=== PATIENT | male | born 1965 | race Hispanic/Latino ===

== ENCOUNTER 2019-05-28 09:50 | Inpatient (IN) | payer OTHER ==
[2019-05-28 14:27] LABS: BUN/Creatinine Ratio 12; Blood Urea Nitrogen 7 mg/dL (9-20); Calcium 8.6 mg/dL (8.4-10.2); Hemolysis Index 16
[2019-05-28 14:28] LABS: Basophils # (Auto) 0.1 K/mm3 (0.0-0.1); Basophils % (Auto) 0.6 % (0.0-1.8); Eosinophils # (Auto) 0.2 K/mm3 (0.0-0.4); Eosinophils % (Auto) 2.7 % (0.0-4.3); Hematocrit 41.6 % (35.5-45.6); Hemoglobin 13.9 gm/dl (11.8-15.2); Lymphocytes # (Auto) 1.4 K/mm3 (1.2-5.4); Lymphocytes % (Auto) 16.1 % (13.4-35.0); Mean Corpuscular HGB Conc 33 % (32-34); Mean Corpuscular Volume 93 fl (84-94); Monocytes # (Auto) 1.1 K/mm3 (0.0-0.8); Monocytes % (Auto) 11.9 % (0.0-7.3); Platelet Count 137 K/mm3 (140-440); Red Blood Count 4.46 M/mm3 (3.65-5.03); Red Cell Distribution Width 13.8 % (13.2-15.2)
--- NOTE | 2019-05-28 14:43 | XRay Report ---
CHEST 1 VIEW INDICATION: Chest Pain. COMPARISON: None FINDINGS: Support devices: None. Heart: Within normal limits. Lungs/Pleura: No acute air space or interstitial disease. Additional findings: There is a posterior right sixth rib fracture which is comminuted and slightly d isplaced. No pneumothorax. IMPRESSION: 1. Right rib fracture as above. 2. Clear lungs. No pneumothorax. Signer Name: Taras Martino MD Signed: 05/28/2019 2:38 PM Workstation Name: [id number]
[2019-05-28] MEDS ORDERED: HYDROcodone/ACETAMINOPHEN 7.5-325MG TAB PO ONE (15:45)
--- NOTE | 2019-05-28 15:59 | Emergency Department Report ---
<BEATRICE CARLSON - Last Filed: 05/28/19 15:54> ED General Adult HPI - General Chief complaint: Chest Pain Stated complaint: CHEST PAIN Time Seen by Provider: 05/28/19 15:28 Source: EMS Mode of arrival: Ambulatory Limitations: No Limitations - History of Present Illness Initial comments: 54-year-old male presents to the emergency room for chest pain in the left upper chest 2 weeks. Patient denies any trauma no injuries. Patient denies any cough besides his smoker's cough. Patient reports a past medical history of hypertension and diabetes but does not take any medication secondary to no funds or insurance. He does smoke for over 30 years. Onset/Timin -: week(s) Location: chest (sternal notch), abdomen (epigastric) Radiation: non-radiation Severity scale (0 -10): 5 Quality: aching Consistency: intermittent Improves with: none Worsens with: none Associated Symptoms: denies other symptoms - Related Data Home Medications Medication Instructions Recorded Confirmed Last Taken No Known Home Medications [No 05/28/19 05/28/19 Unknown Reported Home Medications] Allergies Allergy/AdvReac Type Severity Reaction Status Date / Time No Known Allergies Allergy Unverified 05/28/19 13:41 ED Review of Systems Comment: All other systems reviewed and negative Constitutional: denies: chills, fever Eyes: denies: eye pain, eye discharge, vision change ED Past Medical Hx - Past Medical History Previous Medical History?: Yes Hx Diabetes: Yes - Surgical History Past Surgical History?: No - Social History Smoking Status: Never Smoker Substance Use Type: None - Medications Home Medications: Home Medications Medication Instructions Recorded Confirmed Last Taken Type No Known Home Medications [No 05/28/19 05/28/19 Unknown History Reported Home Medications] ED Physical Exam - General Limitations: No Limitations General appearance: alert, in no apparent distress - Head Head exam: Present: atraumatic, normocephalic - Eye Eye exam: Present: normal appearance - ENT ENT exam: Present: mucous membranes moist - Neck Neck exam: Present: normal inspection, full ROM. Absent: tenderness, l ymphadenopathy - Respiratory Respiratory exam: Present: normal lung sounds bilaterally, chest wall tenderness. Absent: respiratory distress, wheezes - Cardiovascular Cardiovascular Exam: Present: tachycardia ED Medical Decision Making - Lab Data Result diagrams: 05/28/19 13:50 05/28/19 13:50 - Radiology Data Radiology results: report reviewed Patient: BETTY JUAN MR#: [id number] 33 : 1965 Acct:[id number] Age/Sex: 54 / M ADM Date: 05/28/19 Loc: ED Attending Dr: Ordering Physician: ED MD ANASTACIA Date of Service: 05/28/19 Procedure(s): XR chest 1V ap Accession Number(s): [id number] cc: ED DOCMD Fluoro Time In Minutes: CHEST 1 VIEW INDICATION: Chest Pain. COMPARISON: None FINDINGS: Support devices: None. Heart: Within normal limits. Lungs/Pleura: No acute air space or interstitial disease. Additional findings: There is a posterior right sixth rib fracture which is comminuted and slightly displaced. No pneumothorax. IMPRESSION: 1. Right rib fracture as above. 2. Clear lungs. No pneumothorax. Signer Name: Taras Martino MD Signed: 05/28/2019 2:38 PM Workstation Name: [id number] Transcribed By: JW Dictated By: Taras Martino MD Electronically Authenticated By: Taras Martino MD Signed Date/Time: 05/28/191437 DD/ 37 TD/TT: - Medical Decision Making 54-year-old male presents to the emergency room for chest pain in the left upper chest 2 weeks. Patient denies any trauma no injuries. Patient denies any cough besides his smoker's cough. Patient reports a past medical history of hypertension and diabetes but does not take any medication secondary to no funds or insurance. He does smoke for over 30 years. Chest x-ray shows fracture to the right sixth rib. Lipase labs are within normal limits. He was given [place] for pain management. Patient was given clonidine 0.1 mg by mouth 4 blood pressure. Blood pressure still elevated 207/120. Patient is still asymptomatic. Discussed case with Dr. chauhan. She recommends patient to get a CTA of chest abdomen and pelvis as well as labetalol 10mg IV than recheck BP in 30mins. ED Disposition Clinical Impression: Rib fracture, Epigastric pain, Uncontrolled hypertension, Noncompliance with medication regimen, Chest pain Disposition: OP ADMIT IP TO THIS HOSP Is pt being admited?: No Does the pt Need Aspirin: No Condition: Fair <GUY ROSS - Last Filed: 05/28/19 18:45> ED Course - Reevaluation(s) Reevaluation #2: 05/28/19 18:49 Patient was signed out to me for pending CTA of chest and abdominal with trop levels and repeat vitals. CTA and labs are still pending. Vital signs are being taken by RN currently. Patient signed out to Dr. Hernández for follow-up results/vitals and discharge instructions by Dr. Chauhan. ED Medical Decision Making - Lab Data Result diagrams: 05/28/19 13:50 05/28/19 13:50 <JUWAN HERNÁNDEZ - Last Filed: 05/28/19 19:16> ED Course - Reevaluation(s) Reevaluation #3: 05/28/19 19:16 Pt seen and evaluated by myself. Pt has never had a stress test or cardiac cath p/w exertional EARLENE pain. Will admit to the hospital for further evaluation ED Medical Decision Making - Lab Data Result diagrams: 05/28/19 13:50 05/28/19 13:50 Laboratory Tests 05/28/19 05/28/19 05/28/19 13:50 13:50 13:50 WBC 8.9 RBC 4.46 Hgb 13.9 Hct 41.6 MCV 93 MCH 31 MCHC 33 RDW 13.8 Plt Count 137 L Lymph % (Auto) 16.1 Sac % (Auto) 11.9 H Eos % (Auto) 2.7 Baso % (Auto) 0.6 Lymph # 1.4 Sac # 1.1 H Eos # 0.2 Baso # 0.1 Seg Neutrophils % 68.7 Seg Neutrophils # 6.1 Sodium 137 Potassium 3.7 Chloride 100.0 Carbon Dioxide 28 Anion Gap 13 BUN 7 L Creatinine 0.6 L Estimated GFR > 60 BUN/Creatinine Ratio 12 Glucose 95 Calcium 8.6 Troponin T < 0.010 Lipase 20 - EKG Data -: EKG Interpreted by Me EKG shows normal: sinus rhythm Rate: normal - Radiology Data Radiology results: report reviewed (CT chest, abd/pel), image reviewed (CT Chest/abd/pel) [facility] [address] [place] [address] Cat Scan Report Signed Patient: BETTY JUAN MR#: [id number] 33 : 1965 Acct:[id number] Age/Sex: 54 / M ADM Date: 05/28/19 Loc: ED Attending Dr: Ordering Physician: AFSHAN JOSEHP Date of Service: 05/28/19 Procedure(s): CT angio chest Accession Number(s): [id number] cc: AFSHAN JOSEPH CTA chest, abdomen, and pelvis with contrast INDICATION : epigastric abdominal and chest pain. TECHNIQUE: Axial imaging performed through the chest, abdomen, and pelvis, with contrast bolus timing set to maximize opacification of the pulmonary arteries and aorta. 3- plane MIP reformatted images were obtained. All CT scans at this location are performed using CT dose reduction for ALARA by means of automated exposure control. 100 mL of intravenous contrast administered. COMPARISON: None. FINDINGS: Chest: Contrast bolus timing is adequate with no pulmonary arterial filling defect present to suggest PTE. The thoracic aorta shows no acute abnormality such as a dissection. There is no evidence of an aneurysm. Heart size is normal. There is mild emphysema with clear lungs. There are degenerative changes within the spine with no acute osseous abnormality identified. Abdomen/pelvis: There is moderate atherosclerotic disease within the abdominal aorta and branch vessels with no dissection or aneurysm identified. There is at least 50-75% stenosis at the origin of the left renal artery. For arterial phase technique, the liver, gallbladder, spleen, pancreas, adrenals, kidneys, and proximal GI tract appear unremarkable. No pathologic peritoneal or retroperitoneal adenopathy. The prostate is slightly enlarged but otherwise unremarkable. The urinary bladder is normal. No pelvic free fluid. There are occasional colonic diverticula with no acute inflammatory change identified. There are degenerative changes within the spine and pelvis with no acute osseous abnormality identified. IMPRESSION: 1. Negative for PTE. No acute vascular abnormality. 2. Incidental findings as above. Signer Name: Taras Martino MD Signed: 05/28/2019 6:54 PM Workstation Name: [id number] Transcribed By: JUSTIN Dictated By: Taras Martino MD Electronically Authenticated By: Taras Martino MD Signed Date/Time: 05/28/191853 DD/ 49 TD/TT: ED Disposition Is pt being admited?: Yes Does the pt Need Aspirin: No Time of Disposition: 19:17 (Hospitalist paged (Dr Garrett)) <KATIE CHAUHAN - Last Filed: 06/01/19 09:44> ED General Adult HPI - History of Present Illness Initial comments: I also spoke to the patient. Patient has pain under the xiphoid process at the epigastric area for the past 2 weeks. Pain is not min the left upper chest. Pain feels like he swallowed a rock. Pain is constant and worse with deep palpation. He denies shortness of breath, nausea, vomiting, or diaphoresis. Pain is not changed with food and liquid intake. He has chronic elevated blood pressure but does not take any medications. ED Review of Systems ROS: Stated complaint: CHEST PAIN Other details as noted in HPI ED Course Vital Signs 05/28/19 05/28/19 05/28/19 09:56 16:45 17:01 Temperature 98.5 F 98.2 F Pulse Rate 105 H 79 85 Respiratory 26 H Rate Blood Pressure 186/110 207/115 Blood Pressure 207/114 [Left] O2 Sat by Pulse 97 Oximetry 05/28/19 05/28/19 05/28/19 17:48 18:19 18:23 Temperature Pulse Rate 82 82 Respiratory 16 Rate Blood Pressure 209/120 Blood Pressure 209/120 [Left] O2 Sat by Pulse Oximetry 05/28/19 05/28/19 05/28/19 18:49 19:45 19:51 Temperature Pulse Rate 75 72 73 Respiratory 19 18 Rate Blood Pressure 182/98 182/98 Blood Pressure 173/94 [Left] O2 Sat by Pulse 97 97 Oximetry 05/28/19 05/28/19 05/28/19 19:52 20:00 20:11 Temperature 97.8 F Pulse Rate 74 71 Respiratory 18 19 Rate Blood Pressure 173/99 173/99 Blood Pressure [Left] O2 Sat by Pulse 96 97 Oximetry 05/28/19 05/28/19 05/28/19 20:21 20:31 20:41 Temperature Pulse Rate 72 74 74 Respiratory 16 20 20 Rate Blood Pressure 173/99 173/99 173/99 Blood Pressure [Left] O2 Sat by Pulse 97 97 97 Oximetry 05/28/19 05/28/19 20:51 21:00 Temperature Pulse Rate 72 72 Respiratory 21 Rate Blood Pressure 173/99 179/99 Blood Pressure [Left] O2 Sat by Pulse 96 Oximetry - Reevaluation(s) Reevaluation #1: 05/28/19 17:59 Patient received clonidine 0.1 mg with no improvement in blood pressure. IV obtain to obtain CT angiogram. Labetalol will be provided. ED Medical Decision Making - Lab Data Result diagrams: 05/29/19 03:59 05/29/19 03:59 - Medical Decision Making Chest x-ray shows a right sided rib fracture without any reports of trauma. It does not have left upper chest pain or right-sided rib pain on exam or history. Patient receive a CT scan to rule out any dissection or abdominal abnormality. Heart score 3 (pt c/o epigastric pain instead of cp). Repeat trop will be preformed for further clearance Pt s/o to AFSHAN morse and Dr Hernández to reassess for BP reduction of the labetalol and administered more as needed. Also a patient when he be discharged on a blood pressure medication Novasc 10mg, PPI, and Tramadol for pain. Pt prepped for discharge assuming improved blood pressure and unremarkable CT patient will need reassessment. Critical care attestation.: If time is entered above; I have spent that time in minutes in the direct care of this critically ill patient, excluding procedure time.
[2019-05-28] MEDS ORDERED: cloNIDine 0.1 MG TAB PO ONE ×2 (16:55→20:58)
--- NOTE | 2019-05-28 18:58 | Cat Scan Report ---
CTA chest, abdomen, and pelvis with contrast INDICATION : epigastric abdominal and chest pain. TECHNIQUE: Axial imaging performed through the chest, abdomen, and pelvis, with contrast bolus timin g set to maximize opacification of the pulmonary arteries and aorta. 3-plane MIP reformatted images w ere obtained. All CT scans at this location are performed using CT dose reduction for ALARA by means of automated exposure control. 100 mL of intravenous contrast administered. COMPARISON: None. FINDINGS: Chest: Contrast bolus timing is adequate with no pulmonary arterial filling defect present to suggest PTE. The thoracic aorta shows no acute abnormality such as a dissection. There is no evidence of an aneurysm. Heart size is normal. There is mild emphysema with clear lungs. There are degenerative brown ges within the spine with no acute osseous abnormality identified. Abdomen/pelvis: There is moderate atherosclerotic disease within the abdominal aorta and branch vesse ls with no dissection or aneurysm identified. There is at least 50-75% stenosis at the origin of the left renal artery. For arterial phase technique, the liver, gallbladder, spleen, pancreas, adrenals, kidneys, and proxim al GI tract appear unremarkable. No pathologic peritoneal or retroperitoneal adenopathy. The prostate is slightly enlarged but otherwise unremarkable. The urinary bladder is normal. No pelvi c free fluid. There are occasional colonic diverticula with no acute inflammatory change identified. There are degenerative changes within the spine and pelvis with no acute osseous abnormality identifi ed. IMPRESSION: 1. Negative for PTE. No acute vascular abnormality. 2. Incidental findings as above. Signer Name: Taras Martino MD Signed: 05/28/2019 6:54 PM Workstation Name: [id number]
[2019-05-28] MEDS ORDERED: CLOPIDOGREL 300 MG TAB PO ONE (19:22)
[2019-05-28] MEDS ORDERED: CLOPIDOGREL 300 MG TAB ONE (19:50)
[2019-05-28] MEDS ORDERED: cloNIDine 0.1 MG TAB ONE (21:01)
--- NOTE | 2019-05-29 02:07 | Event Note ---
Date: 05/28/19 Please see history and physical in the reports Chest pain rule out NC protocol
[2019-05-29] MEDS ORDERED: HYDROmorphone 1 MG/1 ML INJ IV PRN (02:10)
[2019-05-29] MEDS ORDERED: ACETAMINOPHEN 325 MG TAB PO PRN (02:10)
[2019-05-29] MEDS ORDERED: METOCLOPRAMIDE 10 MG/2 ML INJ IV PRN (02:10)
[2019-05-29] MEDS ORDERED: oxyCODONE /ACETAMINOPHEN 5-325MG TAB PO PRN (02:10)
[2019-05-29] MEDS ORDERED: ONDANSETRON 4 MG/2 ML INJ IV PRN (02:10)
--- NOTE | 2019-05-29 02:44 | History and Physical Report ---
CHIEF COMPLAINT: Left-sided chest pain for 2 weeks. HISTORY OF PRESENT ILLNESS: A 54-year-old male with a history of hypertension and noncompliant with medications, comes in for left-sided chest pain for 2 weeks. The chest pain is retrosternal and more in the diffuse sternum area. No trauma or injuries. No radiation. No diaphoresis or shortness of breath. No palpitations. No prior history of any coronary artery disease with stents or stress test being done. PAST MEDICAL HISTORY: Significant for hypertension and borderline diabetes. CURRENT MEDICATIONS: Amlodipine, famotidine, and tramadol. PAST SURGICAL HISTORY: None. SOCIAL HISTORY: Smokes about half a pack a day. FAMILY HISTORY: Hypertension. REVIEW OF SYSTEMS: Significant for left-sided chest pain for 2 weeks. No radiation. Otherwise, review of systems is negative. PHYSICAL EXAMINATION: GENERAL: Middle-aged male, looks older than his age. VITAL SIGNS: Blood pressure is 173/99, temperature is 98.1, pulse is 74, respirations are 20, and sats are 97%. HEENT: Unremarkable. Pupils are equal and reactive. NECK: Supple, no lymphadenopathy, no thyromegaly. LUNGS: Clear to auscultation and percussion. Good air entry. CARDIOVASCULAR: S1, S2 heard. No gallop, no murmur, no rub. Apical impulse in left fifth intercostal space and midclavicular line. ABDOMEN: Soft and benign. No hepatosplenomegaly. No guarding, no rigidity. Hernial orifices are normal. EXTREMITIES: Good pedal pulses. No pedal edema. CENTRAL NERVOUS SYSTEM: Alert and oriented x 4, nonfocal exam. SKIN: Normal. LABORATORY DATA: Normal CBC. Normal electrolytes. Electrolytes reviewed. BUN and creatinine 7 and 0.6. Troponin 0.010 and second troponin 0.010. IMAGING: EKG shows normal sinus rhythm, no acute ST-T wave changes. Chest x-ray, no acute findings. Right rib fracture and clear lungs. No pneumothorax. The posterior right 6th rib fracture, which is comminuted and slightly displaced. Abdominal pelvic CTA negative for pulmonary embolism. No acute vascular abnormalities. Chest CTA, also no acute pulmonary embolism. Prostate is slightly and prostate slightly enlarged, but otherwise unremarkable. ASSESSMENT AND PLAN: 1. Chest pain, Rule out myocardial infarction, chest pain protocol. The patient admitted in observation status.Lexiscan to be done. 2. Hypertension. The patient initiated on valsartan 160 daily. No home medications to be reconciled. 3. Nicotine dependence. Nicoderm patch initiated.Patient counselled 4. Deep venous thrombosis prophylaxis, heparin 5000 q.12 initiated.and Gi prophylaxis JOB# [id number] VSM/NTS MTDD
[2019-05-29] MEDS: VALSARTAN 160MG TAB PO SCH ×2 (03:48→11:23)
[2019-05-29] MEDS: HEPARIN 5,000 UNIT/1 ML VIAL SUB-Q SCH ×3 (03:49→21:49)
[2019-05-29 04:27] LABS: Basophils % (Auto) 0.6 % (0.0-1.8); Eosinophils # (Auto) 0.2 K/mm3 (0.0-0.4); Eosinophils % (Auto) 4.5 % (0.0-4.3); Hematocrit 38.3 % (35.5-45.6); Hemoglobin 12.8 gm/dl (11.8-15.2); Lymphocytes # (Auto) 1.1 K/mm3 (1.2-5.4); Lymphocytes % (Auto) 23.5 % (13.4-35.0); Mean Corpuscular HGB Conc 33 % (32-34); Mean Corpuscular Volume 94 fl (84-94); Monocytes # (Auto) 0.5 K/mm3 (0.0-0.8); Monocytes % (Auto) 11.2 % (0.0-7.3); Platelet Count 107 K/mm3 (140-440); Red Blood Count 4.08 M/mm3 (3.65-5.03); Red Cell Distribution Width 13.6 % (13.2-15.2)
[2019-05-29 04:42] LABS: Alanine Aminotransferase 26 units/L (7-56); Albumin 3.1 g/dL (3.9-5); BUN/Creatinine Ratio 14; Blood Urea Nitrogen 10 mg/dL (9-20); Calcium 8.5 mg/dL (8.4-10.2); Hemolysis Index 1
[2019-05-29] MEDS ORDERED: REGADENOSON 0.4 MG/5 ML INJ IV ONE ×2 (07:01→07:19)
[2019-05-29] MEDS: FAMOTIDINE 20 MG TAB PO SCH ×2 (11:24→21:49)
[2019-05-29] MEDS: NICOTINE 14 MG/24 HR PATCH TD SCH (11:24)
[2019-05-29] MEDS ORDERED: hydrALAZINE 20 MG/1 ML INJ IV PRN (11:47)
[2019-05-29] MEDS ORDERED: PNEUMOCOCCAL 23 Valent 0.5 ML VIAL IM ONE (12:00)
[2019-05-29] MEDS: guaiFENesin/CODEINE 100-10MG ORAL LIQD 5 ML PO PRN ×2 (12:15→21:49)
--- NOTE | 2019-05-29 15:19 | Progress Note ---
Assessment and Plan Assessment and plan: Acute hypoxic resp failure. Etiology likely sec to undiagnosed COPD exac. Acute bronchitis. Start IV abx Acute COPD exac. #) pack yea hx. Start steroids and bronchodilators. Consider Pulm consult CP. Stress test when resp satus stable History Interval history: No new issues overnight. Some wheezing and chest congestion this am Hospitalist Physical - Constitutional Vitals: Temp Pulse Resp BP Pulse Ox 98.1 F 85 19 179/97 98 05/29/19 08:27 05/29/19 12:00 05/29/19 11:00 05/29/19 11:23 05/29/19 11:00 General appearance: Present: no acute distress, well-nourished - EENT Eyes: Present: PERRL, EOM intact ENT: hearing intact, clear oral mucosa, dentition normal - Neck Neck: Present: supple, normal ROM - Respiratory Respiratory effort: normal Respiratory: bilateral: CTA - Cardiovascular Rhythm: regular Heart Sounds: Present: S1 & S2. Absent: gallop, rub - Extremities Extremities: no ischemia, No edema, Full ROM - Abdominal General gastrointestinal: soft, non-tender, non-distended, normal bowel sounds - Integumentary Integumentary: Present: clear, warm, dry - Neurologic Neurologic: CNII-XII intact, moves all extremities Results - Labs CBC & Chem 7: 05/29/19 03:59 05/29/19 03:59 Labs: Laboratory Last Values WBC 4.8 K/mm3 (4.5-11.0) 05/29/19 03:59 RBC 4.08 M/mm3 (3.65-5.03) 05/29/19 03:59 Hgb 12.8 gm/dl (11.8-15.2) 05/29/19 03:59 Hct 38.3 % (35.5-45.6) 05/29/19 03:59 MCV 94 fl (84-94) 05/29/19 03:59 MCH 31 pg (28-32) 05/29/19 03:59 MCHC 33 % (32-34) 05/29/19 03:59 RDW 13.6 % (13.2-15.2) 05/29/19 03:59 Plt Count 107 K/mm3 (140-440) L 05/29/19 03:59 Lymph % (Auto) 23.5 % (13.4-35.0) 05/29/19 03:59 [place] % (Auto) 11.2 % (0.0-7.3) H 05/29/19 03:59 Eos % (Auto) 4.5 % (0.0-4.3) H 05/29/19 03:59 Baso % (Auto) 0.6 % (0.0-1.8) 05/29/19 03:59 Lymph # 1.1 K/mm3 (1.2-5.4) L 05/29/19 03:59 [place] # 0.5 K/mm3 (0.0-0.8) 05/29/19 03:59 Eos # 0.2 K/mm3 (0.0-0.4) 05/29/19 03:59 Baso # 0.0 K/mm3 (0.0-0.1) 05/29/19 03:59 Seg Neutrophils % 60.2 % (40.0-70.0) 05/29/19 03:59 Seg Neutrophils # 2.9 K/mm3 (1.8-7.7) 05/29/19 03:59 Sodium 134 mmol/L (137-145) L 05/29/19 03:59 Potassium 3.6 mmol/L (3.6-5.0) 05/29/19 03:59 Chloride 99.7 mmol/L (98-107) 05/29/19 03:59 Carbon Dioxide 27 mmol/L (22-30) 05/29/19 03:59 Anion Gap 11 mmol/L 05/29/19 03:59 BUN 10 mg/dL (9-20) 05/29/19 03:59 Creatinine 0.7 mg/dL (0.8-1.5) L 05/29/19 03:59 Estimated GFR > 60 ml/min 05/29/19 03:59 BUN/Creatinine Ratio 14 % 05/29/19 03:59 Glucose 100 mg/dL (75-100) 05/29/19 03:59 Hemoglobin A1c 4.9 % (4-6) 05/29/19 03:59 Calcium 8.5 mg/dL (8.4-10.2) 05/29/19 03:59 Total Bilirubin 0.40 mg/dL (0.1-1.2) 05/29/19 03:59 AST 42 units/L (5-40) H 05/29/19 03:59 ALT 26 units/L (7-56) 05/29/19 03:59 Alkaline Phosphatase 108 units/L (35-129) 05/29/19 03:59 Troponin T < 0.010 ng/mL (0.00-0.029) 05/29/19 08:01 Total Protein 6.1 g/dL (6.3-8.2) L 05/29/19 03:59 Albumin 3.1 g/dL (3.9-5) L 05/29/19 03:59 Albumin/Globulin Ratio 1.0 % 05/29/19 03:59 Lipase 20 units/L (13-60) 05/28/19 13:50 Active Medications - Current Medications Current Medications: Generic Name Dose Route Start Last Admin Trade Name Freq PRN Reason Stop Dose Admin Acetaminophen 650 mg 05/29/19 02:10 Tylenol PO Q4H PRN Pain MILD(1-3)/Fever >100.5/LINDSAY Famotidine 20 mg 05/29/19 10:00 05/29/19 11:24 Pepcid PO 20 mg BID ANNIE Administration Heparin Sodium (Porcine) 5,000 unit 05/29/19 02:30 05/29/19 11:25 Heparin SUB-Q 5,000 unit Q12HR ANNIE Administration Hydralazine HCl 2 mg 05/29/19 11:47 Apresoline IV Q6HR PRN Blood Pressure Hydromorphone HCl 0.5 mg 05/29/19 02:10 Dilaudid IV Q3H PRN Pain , Severe (7-10) Metoclopramide HCl 10 mg 05/29/19 02:10 Reglan IV Q6H PRN Nausea And Vomiting Nicotine 14 mg 05/29/19 10:00 05/29/19 11:24 Habitrol TD 14 mg QDAY ANNIE Administration Ondansetron HCl 4 mg 05/29/19 02:10 Zofran IV Q3H PRN Nausea And Vomiting Oxycodone/Acetaminophen 1 tab 05/29/19 02:10 Percocet 5/325 PO Q6H PRN Pain, Moderate (4-6) Pseudoephedrine/Acetam/Chlorphenir 5 ml 05/29/19 11:46 05/29/19 12:15 Robitussin Ac PO 5 ml Q6H PRN Administration Cough Sodium Chloride 10 ml 05/29/19 10:00 05/29/19 11:24 Sodium Chloride Flush Syringe 10 Ml IV 10 ml BID ANNIE Administration Sodium Chloride 10 ml 05/29/19 02:10 Sodium Chloride Flush Syringe 10 Ml IV PRN PRN LINE FLUSH Valsartan 160 mg 05/29/19 02:16 05/29/19 11:23 Diovan PO 160 mg DAILY ANNIE Administration Nutrition/Malnutrition Assess - Dietary Evaluation Nutrition/Malnutrition Findings: Nutrition Notes Start: 05/29/19 14:38 Freq: Status: Active Protocol: Document 05/29/19 14:38 LP (Rec: 05/29/19 14:47 LP [id number]) Nutrition Notes Need for Assessment generated from: MD Order Initial or Follow up Assessment Current Diagnosis Diabetes,Hypertension Other Pertinent Diagnosis Chest pain Current Diet Cardiac Labs/Tests A1c 4.9 Pertinent Medications Reviewed Height 5 ft 6 in Weight 58.9 kg Usual Body Weight 72.7 kg Mobile Body Weight (kg) 64.54 BMI 20.9 Weight change and time frame 19% in 4 months (significant) Weight Status Appropriate Subjective/Other Information Consult for diet education and supplement. Pt states eating ok. Pt states losing wt. Noted muscle and fat wasting. Pt states drinking supplement that was ordered. Pt denies education needs. Burn Absent Trauma Absent GI Symptoms None Food Allergy No Current % PO Fair (50-74%) Minimum of two criteria Yes Energy Intake (non-severe) <75% Estimated Energy Requirement >7 days Interpretation of Weight Loss (severe) >7.5% in 3 months Body Fat Depletion Moderate depletion (severe) Muscle Mass Moderate Depletion (severe) #1 Nutrition Diagnosis Malnutrition Etiology unknown/ fair appetite As Evidenced by Signs and Symptoms Pt states eating ok [employer], wt loss of 19% oin 4 months, muscle and fat wasting. Is patient on ventilator? No Is Patient Ambulatory and/or Out of Bed Yes REE-([facility]-ambulatory/OOB) [ [id number] NUTR.[id number]] Calculation Used for Recommendations [facility] Additional Notes Protein needs [id number] (1.2-1 .5g/kg) Fluid needs are 1ml/kcal Nutrition Intervention Change Diet Order: Continue cardiac diet Add Supplement/Snack (indicate name/kcal Ensure Enlive BID chocolate /protein ) Provides kCal: 700 Provides Protein (gm) 40 Goal #1 Meet at least 80% of kcal and protein needs Goal #2 Maintain wt Anticipated Discharge Needs: Cardiac diet Follow-Up By: 05/31/19 Additional Comments Follow for intakes
[2019-05-29] MEDS: cefTRIAXone/NS 1 GM/50 ML 1 GM/50 ML BAG IV SCH (18:11)
[2019-05-29] MEDS: methylPREDNISolone Sod Succinate 40 MG/1 ML INJ IV SCH (18:11)
[2019-05-29] MEDS: IPRATROPIUM/ALBUTEROL SULFATE 3 ML AMPUL.NEB IH SCH (23:11)
[2019-05-30] MEDS: methylPREDNISolone Sod Succinate 40 MG/1 ML INJ IV SCH ×2 (02:38→09:42)
[2019-05-30] MEDS: IPRATROPIUM/ALBUTEROL SULFATE 3 ML AMPUL.NEB IH SCH (02:59)
[2019-05-30] MEDS ORDERED: IPRATROPIUM/ALBUTEROL SULFATE 3 ML AMPUL.NEB IH SCH (08:00)
[2019-05-30] MEDS: FAMOTIDINE 20 MG TAB PO SCH (09:42)
[2019-05-30] MEDS: cefTRIAXone/NS 1 GM/50 ML 1 GM/50 ML BAG IV SCH (09:42)
[2019-05-30] MEDS: NICOTINE 14 MG/24 HR PATCH TD SCH (09:42)
[2019-05-30] MEDS: HEPARIN 5,000 UNIT/1 ML VIAL SUB-Q SCH (09:43)
[2019-05-30] MEDS: VALSARTAN 160MG TAB PO SCH (09:43)
[2019-05-30 09:55] VITALS: BP 185/100
--- NOTE | 2019-05-30 15:53 | Progress Note ---
Assessment and Plan Assessment and plan: Acute hypoxic resp failure. Etiology likely sec to undiagnosed COPD exac. Acute bronchitis. Start IV abx Acute COPD exac. #) pack yea hx. Start steroids and bronchodilators. Consider Pulm consult CP. Stress test when resp satus stable History Interval history: No new issues overnight. Still some wheezing and chest congestion this am Hospitalist Physical - Constitutional Vitals: Temp Pulse Resp BP Pulse Ox 97.7 F 88 18 185/100 97 05/30/19 03:48 05/30/19 11:09 05/30/19 11:09 05/30/19 09:43 05/30/19 03:48 General appearance: Present: no acute distress, severe distress, well-nourished - EENT Eyes: Present: PERRL, EOM intact ENT: hearing intact, clear oral mucosa, dentition normal - Neck Neck: Present: supple, normal ROM - Respiratory Respiratory effort: normal Respiratory: bilateral: CTA - Cardiovascular Rhythm: regular Heart Sounds: Present: S1 & S2. Absent: gallop, rub - Extremities Extremities: no ischemia, No edema, Full ROM - Abdominal General gastrointestinal: soft, non-tender, non-distended, normal bowel sounds - Integumentary Integumentary: Present: clear, warm, dry - Neurologic Neurologic: CNII-XII intact, moves all extremities Results - Labs CBC & Chem 7: 05/29/19 03:59 05/29/19 03:59 Labs: Laboratory Last Values WBC 4.8 K/mm3 (4.5-11.0) 05/29/19 03:59 RBC 4.08 M/mm3 (3.65-5.03) 05/29/19 03:59 Hgb 12.8 gm/dl (11.8-15.2) 05/29/19 03:59 Hct 38.3 % (35.5-45.6) 05/29/19 03:59 MCV 94 fl (84-94) 05/29/19 03:59 MCH 31 pg (28-32) 05/29/19 03:59 MCHC 33 % (32-34) 05/29/19 03:59 RDW 13.6 % (13.2-15.2) 05/29/19 03:59 Plt Count 107 K/mm3 (140-440) L 05/29/19 03:59 Lymph % (Auto) 23.5 % (13.4-35.0) 05/29/19 03:59 [place] % (Auto) 11.2 % (0.0-7.3) H 05/29/19 03:59 Eos % (Auto) 4.5 % (0.0-4.3) H 05/29/19 03:59 Baso % (Auto) 0.6 % (0.0-1.8) 05/29/19 03:59 Lymph # 1.1 K/mm3 (1.2-5.4) L 05/29/19 03:59 [place] # 0.5 K/mm3 (0.0-0.8) 05/29/19 03:59 Eos # 0.2 K/mm3 (0.0-0.4) 05/29/19 03:59 Baso # 0.0 K/mm3 (0.0-0.1) 05/29/19 03:59 Seg Neutrophils % 60.2 % (40.0-70.0) 05/29/19 03:59 Seg Neutrophils # 2.9 K/mm3 (1.8-7.7) 05/29/19 03:59 Sodium 134 mmol/L (137-145) L 05/29/19 03:59 Potassium 3.6 mmol/L (3.6-5.0) 05/29/19 03:59 Chloride 99.7 mmol/L (98-107) 05/29/19 03:59 Carbon Dioxide 27 mmol/L (22-30) 05/29/19 03:59 Anion Gap 11 mmol/L 05/29/19 03:59 BUN 10 mg/dL (9-20) 05/29/19 03:59 Creatinine 0.7 mg/dL (0.8-1.5) L 05/29/19 03:59 Estimated GFR > 60 ml/min 05/29/19 03:59 BUN/Creatinine Ratio 14 % 05/29/19 03:59 Glucose 100 mg/dL (75-100) 05/29/19 03:59 Hemoglobin A1c 4.9 % (4-6) 05/29/19 03:59 Calcium 8.5 mg/dL (8.4-10.2) 05/29/19 03:59 Total Bilirubin 0.40 mg/dL (0.1-1.2) 05/29/19 03:59 AST 42 units/L (5-40) H 05/29/19 03:59 ALT 26 units/L (7-56) 05/29/19 03:59 Alkaline Phosphatase 108 units/L (35-129) 05/29/19 03:59 Troponin T < 0.010 ng/mL (0.00-0.029) 05/29/19 08:01 Total Protein 6.1 g/dL (6.3-8.2) L 05/29/19 03:59 Albumin 3.1 g/dL (3.9-5) L 05/29/19 03:59 Albumin/Globulin Ratio 1.0 % 05/29/19 03:59 Lipase 20 units/L (13-60) 05/28/19 13:50 Active Medications - Current Medications Current Medications: Generic Name Dose Route Start Last Admin Trade Name Freq PRN Reason Stop Dose Admin Acetaminophen 650 mg 05/29/19 02:10 Tylenol PO Q4H PRN Pain MILD(1-3)/Fever >100.5/LINDSAY Albuterol/Ipratropium 1 ampul 05/30/19 08:00 05/30/19 11:04 Duoneb *Not For Prn Use* IH 1 ampul TIDRT ANNIE Administration Famotidine 20 mg 05/29/19 10:00 05/30/19 09:42 Pepcid PO 20 mg BID ANNIE Administration Heparin Sodium (Porcine) 5,000 unit 05/29/19 02:30 05/30/19 09:43 Heparin SUB-Q 5,000 unit Q12HR ANNIE Administration Hydralazine HCl 2 mg 05/29/19 11:47 05/29/19 15:39 Apresoline IV 2 mg Q6HR PRN Administration FOR SBP > 160 AND/OR DBP> 100 Hydromorphone HCl 0.5 mg 05/29/19 02:10 Dilaudid IV Q3H PRN Pain , Severe (7-10) Ceftriaxone Sodium 1 gm in 50 mls @ 100 mls/hr 05/29/19 18:00 05/30/19 09:42 Rocephin/Ns 1 Gm/50 Ml IV 100 mls/hr Q24HR ANNIE Administration Protocol Methylprednisolone Sodium Succinate 40 mg 05/29/19 18:00 05/30/19 09:42 Solu-Medrol IV 40 mg Q8H ANNIE Administration Metoclopramide HCl 10 mg 05/29/19 02:10 Reglan IV Q6H PRN Nausea And Vomiting Nicotine 14 mg 05/29/19 10:00 05/30/19 09:42 Habitrol TD 14 mg QDAY ANNIE Administration Ondansetron HCl 4 mg 05/29/19 02:10 Zofran IV Q3H PRN Nausea And Vomiting Oxycodone/Acetaminophen 1 tab 05/29/19 02:10 Percocet 5/325 PO Q6H PRN Pain, Moderate (4-6) Pseudoephedrine/Acetam/Chlorphenir 5 ml 05/29/19 11:46 05/29/19 21:49 Robitussin Ac PO 5 ml Q6H PRN Administration Cough Sodium Chloride 10 ml 05/29/19 10:00 05/30/19 09:43 Sodium Chloride Flush Syringe 10 Ml IV 10 ml BID ANNIE Administration Sodium Chloride 10 ml 05/29/19 02:10 Sodium Chloride Flush Syringe 10 Ml IV PRN PRN LINE FLUSH Valsartan 160 mg 05/29/19 02:16 05/30/19 09:43 Diovan PO 160 mg DAILY ANNIE Administration Nutrition/Malnutrition Assess - Dietary Evaluation Nutrition/Malnutrition Findings: Nutrition Notes Start: 05/29/19 14:38 Freq: Status: Active Protocol: Document 05/29/19 14:38 LP (Rec: 05/29/19 14:47 LP [id number]) Nutrition Notes Need for Assessment generated from: MD Order Initial or Follow up Assessment Current Diagnosis Diabetes,Hypertension Other Pertinent Diagnosis Chest pain Current Diet Cardiac Labs/Tests A1c 4.9 Pertinent Medications Reviewed Height 5 ft 6 in Weight 58.9 kg Usual Body Weight 72.7 kg [place] Body Weight (kg) 64.54 BMI 20.9 Weight change and time frame 19% in 4 months (significant) Weight Status Appropriate Subjective/Other Information Consult for diet education and supplement. Pt states eating ok. Pt states losing wt. Noted muscle and fat wasting. Pt states drinking supplement that was ordered. Pt denies education needs. 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 Is patient on ventilator? No Is Patient Ambulatory and/or Out of Bed Yes REE-([facility]-ambulatory/OOB) [ [id number] [id number]] Calculation Used for Recommendations [facility] Additional Notes Protein needs [id number] (1.2-1 .5g/kg) Fluid needs are 1ml/kcal Nutrition Intervention Change Diet Order: Continue cardiac diet Add Supplement/Snack (indicate name/kcal Ensure Enlive BID chocolate /protein ) Provides kCal: 700 Provides Protein (gm) 40 Goal #1 Meet at least 80% of kcal and protein needs Goal #2 Maintain wt Anticipated Discharge Needs: Cardiac diet Follow-Up By: 05/31/19 Additional Comments Follow for intakes
--- NOTE | 2019-05-31 08:32 | Discharge Summary ---
Providers - Providers Date of Admission: 05/29/19 16:09 Date of discharge: 05/31/19 Attending physician: KIT DE ANDA 05/28/19 23:08 Consult to Dietitian/Nutrition [CONS] Routine Physician Instructions: Reason For Exam: Reason for Consult: Diet education 05/29/19 15:19 Consult to Physician [CONS] Routine Comment: Consulting Provider: RENE LIZAMA Physician Instructions: Reason For Exam: procb copd exac Primary care physician: SEWING MACHINE OPERATOR [employer] Hospitalization Reason for admission: cp Condition: Fair Hospital course: 54-year-old male who presented with significant past medical history of hypertension noncompliant with medications complaining of left-sided chest pain for 2 weeks. Patient was admitted with diagnosis of chest pain and underwent workup with a scheduled stress test. However, patient was unable to complete stress test due to wheezing and respiratory failure. Etiology of the wheezing and respiratory failure was felt to be secondary to acute bronchitis and undiagnosed COPD exacerbation. Patient has a [id number] history and has not seen a physician in several years. Cardiology recommended stabilizing respiratory status and having stress tests ordered later in the hospitalization. Patient was treated with IV antibiotics and steroids, bronchodilators/nebulizers and pulmonary consultation was obtained. Patient, however, left hospital AMA before workup could be completed. Dedicated discharge time of 32 minutes. Disposition: [id number] LEFT AGAINST MED ADVICE Core Measure Documentation - Palliative Care Palliative Care/ Comfort Measures: Not Applicable - Core Measures Any of the following diagnoses?: none Exam - Constitutional Vitals: Temp Pulse Resp BP Pulse Ox 97.7 F 103 H 18 185/100 97 05/30/19 03:48 05/30/19 12:50 05/30/19 11:09 05/30/19 09:43 05/30/19 03:48 Plan Follow up with: [facility] [Outside] - 3-5 Days PRIMARY CARE, [Primary Care Provider] - 3-5 Days
== END 2019-05-30 17:00 | disposition left against medical advice (07) | DRG 189 ==
LOC: ED 09:50 → 4A 19:22 → OBSVTOIN 05-29 16:09
PROVIDERS: ADMIT Internal Medicine; ATTEND Hospitalist
PROC: 3E0234Z Introduction of Serum, Toxoid and Vaccine into Muscle, Percutaneous Approach (ICD-10-PCS; principal; 2019-05-29)
DX: J96.01 Acute respiratory failure with hypoxia (principal); J44.1 Chronic obstructive pulmonary disease with (acute) exacerbation; J44.0 Chronic obstructive pulmonary disease with (acute) lower respiratory infection; F17.210 Nicotine dependence, cigarettes, uncomplicated; J20.9 Acute bronchitis, unspecified; I10 Essential (primary) hypertension; E11.9 Type 2 diabetes mellitus without complications; Z53.29 Procedure and treatment not carried out because of patient's decision for other reasons; Z79.899 Other long term (current) drug therapy; Z82.49 Family history of ischemic heart disease and other diseases of the circulatory system; Z23 Encounter for immunization; Z79.84 Long term (current) use of oral hypoglycemic drugs; R07.9 Chest pain, unspecified
CPT/HCPCS: 36415; 71045; 71275; 74174; 80048; 80053; 83036; 83690; 84484; 85025; 90732; 93005; 93010; 94640; G0378; J0696; J1644; J2785; J2920; Q9967